=== PATIENT | male | born 1955 | race Caucasian/White ===

== ENCOUNTER → 2020-03-17 08:56 | Outpatient (CLI) | payer BC, SELFPAY ==
[2020-03-17 11:02] LABS: Anion Gap 8 (5-15); BUN 13 mg/dL (7-18); BUN/Creat Ratio 17.2 RATIO (10-20); Calcium,Total 8.9 mg/dL (8.5-10.1); Chloride 105 mmol/L (98-107); Cholesterol 203 mg/dL (200); Creatinine, Serum 0.76 mg/dL (0.70-1.30); EST Glomerular Filtration Rate 110 mL/min (>60); Est Glom Filt Rate - Afr Amer 133 mL/min (>60); Glucose 92 mg/dL (74-106); High Density Lipoprotein 97 mg/dL; Potassium 4.2 mmol/L (3.5-5.1); Sodium Level 139 mmol/L (136-145); Triglycerides 79 mg/dL; Very Low Density Lipoprotein 16 mg/dL (5-40)
== END ==
PROVIDERS: PCP Family Medicine; Referring Provider Family Medicine; Visit Provider Family Medicine
DX: I10 Essential (primary) hypertension (principal)
CPT/HCPCS: 36415; 80048; 80061

== ENCOUNTER → 2021-06-02 08:10 | Outpatient (CLI) | payer MEDICARE, SELFPAY ==
[2021-06-02 10:37] LABS: ALB/GLOB Ratio 1.2 RATIO (0.9-2.4); AST(SGOT) 22 U/L (15-37); Alanine Aminotransfer ALT/SGPT 28 U/L (16-61); Albumin, Serum 3.8 g/dL (3.2-5.0); Alkaline Phosphatase 71 U/L (45-117); Anion Gap 4 (5-15); BUN 13 mg/dL (7-18); BUN/Creat Ratio 18.3 RATIO (10-20); Calcium,Total 8.8 mg/dL (8.5-10.1); Chloride 105 mmol/L (98-107); Cholesterol 191 mg/dL (200); Creatinine, Serum 0.71 mg/dL (0.70-1.30); EST Glomerular Filtration Rate 118 mL/min (>60); Est Glom Filt Rate - Afr Amer 142 mL/min (>60); Globulin 3.1 g/dL (2.2-4.2); Glucose 87 mg/dL (74-106); High Density Lipoprotein 83 mg/dL; PSA,Total - Annual Screen 0.95 ng/mL (0.00-4.00); Potassium 4.5 mmol/L (3.5-5.1); Protein, Total 6.9 g/dL (6.4-8.2); Sodium Level 138 mmol/L (136-145); Triglycerides 103 mg/dL; Very Low Density Lipoprotein 21 mg/dL (5-40)
== END ==
PROVIDERS: PCP Family Medicine; Referring Provider Family Medicine; Visit Provider Family Medicine
DX: I10 Essential (primary) hypertension (principal); Z12.5 Encounter for screening for malignant neoplasm of prostate
CPT/HCPCS: 36415; 80053; 80061; 84153; G0103

== ENCOUNTER → 2021-06-16 16:53 | Outpatient (CLI) | payer MEDICARE, SELFPAY | PROVIDERS: PCP Family Medicine; Visit Provider Family Medicine | DX: B34.9 Viral infection, unspecified (principal) | CPT/HCPCS: 87635; U0005; U0003 ==

== ENCOUNTER → 2021-06-19 15:27 | Outpatient (CLI) | payer MEDICARE, SELFPAY ==
--- NOTE | 2021-06-19 15:30 | RAD_ITS ---
INDICATION: Cough, bronchitis EXAMINATION/TECHNIQUE: X-RAY - XR Chest 2 Views COMPARISON: None. FINDINGS: LINES/DEVICES: None. LUNGS: No consolidation, edema or effusion. No pneumothorax. MEDIASTINUM AND CARDIOVASCULAR STRUCTURES: Cardiac silhouette not enlarged. Central airways and mediastinal contour are unremarkable. BONES AND SOFT TISSUES: Mild degenerative changes visualized in the thoracic spine, no acute osseous abnormality is seen. RAD/Chest PA and Lateral IMPRESSION: No radiographic evidence of acute cardiopulmonary disease. Electronically Signed: Jonnathan Tellez MD at 16:24 EDT Tel , Service support ,
== END ==
PROVIDERS: PCP Family Medicine; Referring Provider Family Medicine; Visit Provider Family Medicine
DX: J40 Bronchitis, not specified as acute or chronic (principal)
CPT/HCPCS: 71046

== ENCOUNTER → 2021-08-31 | Outpatient (CLI) | payer MEDICARE, SELFPAY | END | disposition home or self-care (01) | PROVIDERS: PCP Family Medicine; Visit Provider Nurse Practitioner Family | DX: U07.1 COVID-19 (principal) | CPT/HCPCS: 87635; U0005; U0003 ==

== ENCOUNTER 2021-12-30 07:13 | Outpatient (CLI) | payer MEDICARE, SELFPAY ==
[2021-12-30 10:20] LABS: Absolute Lymphocyte Count 2.64 X10^3/uL (0.83-4.51); Absolute Neutrophil Count 2.8 X10^3/uL (2.0-7.7); Basophil# 0.06 X10^3/uL; Basophil% 0.9 % (0-1); Eosinophil# 0.64 X10^3/uL; Eosinophils% 9.3 % (0-5); Hematocrit 47.1 % (40-54); Hemoglobin 15.2 g/dL (13.0-16.5); Lymphocyte # 2.64 X10^3/ul (0.83-4.51); Lymphocyte % 38.3 % (19-41); Mean Corp Hgb Conc 32.3 g/dL (32-36); Mean Corpuscular Volume 96.1 fL (80-94); Mean Platelet Vol. 14.9 fl (6.2-12.0); Monocyte# 0.72 X10^3/uL; Monocyte% 10.4 % (0-10); NRBC Flagged by Analyzer 0 % (0-5); Neutrophil # 2.83 X10^3/uL (2.7-7.7); Platelet Count 203 K/mm3 (150-450); RBC Distribution Width CV 13.2 % (11.6-14.6); White Blood Count 6.9 K/mm3 (4.4-11.0)
[2021-12-30 10:47] LABS: ALB/GLOB Ratio 1.2 RATIO (0.9-2.4); AST(SGOT) 23 U/L (15-37); Alanine Aminotransfer ALT/SGPT 25 U/L (16-61); Albumin, Serum 3.6 g/dL (3.2-5.0); Alkaline Phosphatase 69 U/L (45-117); Anion Gap 5 (5-15); BUN 15 mg/dL (7-18); BUN/Creat Ratio 19.4 RATIO (10-20); Calcium,Total 8.7 mg/dL (8.5-10.1); Chloride 105 mmol/L (98-107); Cholesterol 202 mg/dL (200); Creatinine, Serum 0.78 mg/dL (0.70-1.30); EST Glomerular Filtration Rate 106 mL/min (>60); Est Glom Filt Rate - Afr Amer 129 mL/min (>60); Globulin 3.1 g/dL (2.2-4.2); Glucose 84 mg/dL (74-106); High Density Lipoprotein 79 mg/dL; Potassium 4.1 mmol/L (3.5-5.1); Protein, Total 6.7 g/dL (6.4-8.2); Sodium Level 139 mmol/L (136-145); Triglycerides 136 mg/dL; Very Low Density Lipoprotein 27 mg/dL (5-40)
== END 2021-12-30 23:59 | disposition home or self-care (01) ==
LOC: MTLAB 07:14
PROVIDERS: PCP Registered Nurse; Referring Provider Registered Nurse; Visit Provider Registered Nurse
DX: I10 Essential (primary) hypertension (principal)
CPT/HCPCS: 36415; 80053; 80061; 85025

== ENCOUNTER 2022-05-26 15:15 | Emergency (ER) | payer MEDICARE, SELFPAY ==
[2022-05-26 15:17] VITALS: BP 140/114; PULSE 97; RESP 14; TEMP 36.1; O2SAT 100; BMI 23.3
--- NOTE | 2022-05-26 15:26 | EKG12_ITS ---
Test Reason : CHEST PAIN Blood Pressure : / mmHG Vent. Rate : 052 BPM Atrial Rate : 052 BPM P-R Int : 232 ms QRS Dur : 102 ms QT Int : 426 ms P-R-T Axes : 077 047 050 degrees QTc Int : 396 ms Sinus bradycardia with 1st degree A-V block Otherwise normal ECG Confirmed by TAE MARTINEZ, RENEE ([id number]), editorial director JAKOB JOY ([id number]) on 05/28/2022 2:29:47 PM Referred By: JESSICA Confirmed By:SAIDA STRONG MD
--- NOTE | 2022-05-26 15:27 | EDS_ITS ---
HPI History of Present Illness Chief Complaint: Chest Pain Informant: patient Onset/Context/Timing Onset: - (Acute on chronic, worse today) Activity at onset: sudden Timing: Intermittent Quality: Positive for Sharp Location: Left Chest and - (Left arm) Current Severity: Gone Maximum Severity: Moderate Narrative Narrative: Patient presents secondary to intermittent left chest and arm pain. He states for the last 10 years or so he has had intermittent problems like this. 10 years ago he had a cardiac work-up that was unremarkable. He was told this would likely be secondary to nerve injury. He states that throughout the years has had intermittent episodes. Over the past week he has noted more frequent episodes and last night pain actually woke him from sleep. He states a couple of the episodes were very severe and took his breath away for a moment. Dony walked around, moving his left arm and pain seemed to subside. [facility] Medical History Enlarged heart Hypertension Home Medications Elliott-Citrate 05/26/22 [History Last Taken Unknown] aspirin 81 mg chewable tablet 81 mg PO DAILY 05/26/22 [History Last Taken Unknown] cetirizine 10 mg tablet (Zyrtec) 10 mg PO DAILY 05/26/22 [History Last Taken Unknown] glucosamine KRh-D4-Wtarlrdax greta 1,500 mg-400 unit-100 mg tablet (Osteo Bi- Flex (5-Loxin)) 2 tab PO DAILY 05/26/22 [History Last Taken Unknown] losartan 50 mg tablet 100 mg PO DAILY 05/26/22 [History Last Taken Unknown] oyirsvyrorgo-ptnjbtii-rcrnj acid 400 mcg-vitamin K 40 mcg capsule 1 cap PO DAILY 05/26/22 [History Last Taken Unknown] Allergy/AdvReac Type Severity Reaction Status Date / Time levofloxacin [From Levaquin] Allergy Anaphylaxis Verified 05/26/22 15:17 Penicillins [PCN] Allergy Hives Verified 05/26/22 15:17 tramadol AdvReac Other Verified 05/26/22 15:17 Social History Smoking Status: Former smoker ROS ROS ED Constitutional Constitutional ED: Denies chills or fever(s) Eyes Eyes: Denies change in vision or discharge from eye(s) ENT ENT ED: Denies discharge from eye(s), rhinorrhea or sore throat Cardiovascular Cardiovascular: Reports chest pain; Denies palpitations Respiratory/Chest Respiratory/Chest: Denies cough or dyspnea Gastrointestinal Gastrointestinal: Denies abdominal pain, diarrhea, nausea or vomiting Genitourinary Genitourinary ED: Denies difficulty urinating or dysuria Musculoskeletal Musculoskeletal: Reports extremity pain; Denies back pain Integumentary Denies Abrasions or rash Neurologic Neurologic: Denies headache(s) or weakness Allergic/Immunologic Allergic/Immunologic ED: Denies lip swelling or urticaria EXAM Physical Exam Const Vital Signs: 05/26/22 15:17 05/26/22 15:31 05/26/22 15:31 Temperature 97 F L Temperature Source Temporal Pulse Rate 97 54 L Respiratory Rate 14 15 Respiratory Effort Normal Blood Pressure 140/114 H 160/79 H Blood Pressure Mean 122 106 Pulse Ox 100 99 Oxygen Delivery Method Room Air Room Air 05/26/22 16:19 05/26/22 17:00 Temperature Temperature Source Pulse Rate 53 L Respiratory Rate 12 Respiratory Effort Blood Pressure 151/75 H Blood Pressure Mean Pulse Ox 99 98 Oxygen Delivery Method Room Air Positive well nourished and well developed General Appearance ED: well developed HEENT Reports normocephalic and head/scalp atraumatic Eyes PERRL and EOMs intact bilaterally Neck supple Chest Wall inspection of chest normal and palpation of chest normal Resp normal respiratory effort and clear to auscultation bilaterally Cardio regular rhythm Rate: bradycardia GI normal to inspection, nondistended, normoactive bowel sounds Palpation: soft Extremity normal to inspection Neuro oriented x3 and no sensory deficits noted Sensorium / Orientation: alert Motor Exam: strength 5/5 throughout Psych mental status grossly normal Skin no rashes or lesions noted Heart Score History: Slightly/Non-Suspicious ECG: Normal Age: >/= 65 years Risk Factors: 1 or 2 Risk Factors Troponin: </= Normal Limit Score: 3 MDM MDM MDM Narrative Medical decision making narrative: Patient had 1 baby aspirin this morning. He is given 3 baby aspirin on arrival to the emergency room. EKG, chest x-ray, lab work obtained. Patient was monitored on secured entrance monitor throughout his stay. Lab Data Attestation: I reviewed the patient's lab results. Labs: Laboratory Results - last 24 hr 05/26/22 05/26/22 15:35 15:35 WBC 7.4 RBC 4.64 Hgb 14.5 Hct 44.3 MCV 95.5 H MCH 31.3 MCHC 32.7 RDW Std Deviation 44.0 H RDW Coeff of Ousmane 12.5 Plt Count 231 MPV 12.5 H Immature Gran % (Auto) 0.300 Neut % (Auto) 43.8 L Lymph % (Auto) 34.6 [place] % (Auto) 9.5 Eos % (Auto) 11.0 H Baso % (Auto) 0.8 Absolute Neuts (auto) 3.2 Absolute Lymphs (auto) 2.55 Nucleated RBC % 0 Differential Comment SCANNED Sodium 140 Potassium 4.1 Chloride 108 H Carbon Dioxide 29.0 Anion Gap 3 L BUN 18 Creatinine 0.75 Estim Creat Clear Calc 71.68 Est GFR (MDRD) Af Amer 133 Est GFR (MDRD) Non-Af 110 BUN/Creatinine Ratio 23.9 H Glucose 90 Calcium 9.0 Troponin I High Sens 6 Radiography Chest X-Ray - ED: 1 View, Read by ED Physician, Normal, Heart, Lungs and Mediastinum Diagnostic Testing: Clinical Impression(s) from Imaging Studies Chest X-Ray 05/26/22 15:30 IMPRESSION: No acute abnormality is seen. Electronically Signed: Blair Andujar MD at 15:43 EDT , EKG Initial EKG: Attestation: I personally reviewed and interpreted this EKG as follows: Interpretation: Sinus Bradycardia (Sinus bradycardia 52 bpm. First-degree AV block with MS of 232. No acute ST change.) Treatment and Re-Evaluation Narrative: Repeat evaluation patient resting comfortably. He states he had a couple episodes of sharp shooting pain with no change noted on secured entrance monitor. Lab work reviewed with patient and at bedside. Lab work is unremarkable with a negative troponin at 6. He has had several days of pain and did not feel he needs to stay for a repeat 2-hour troponin. Chest x-ray per my interpretation reveals no acute findings. Patient does state that his arm pain last night that was most significant was when he woke up with his left arm folded across his chest. Once he straighten his arm out to his left side his pain resolved. I do believe this is likely musculoskeletal in nature. Return instructions are provided. Discharge Plan Triage Chief Complaint: Chest Pain ED Provider: Chante Palma Dx/Rx/DC Orders Clinical Impression: Atypical chest pain Instructions: ED Chest Pain, Noncardiac Prescriptions: No Action losartan 50 mg tablet 100 mg PO DAILY Label Comments: TAKE 2 TABLETS BY MOUTH DAILY cetirizine [Zyrtec] 10 mg Tablet 10 mg PO DAILY aspirin 81 mg Tablet,Chewable 81 mg PO DAILY uugmrwlcbqj-D3-Jkqedpptr serr [Osteo Bi-Flex (5-Loxin)] 1,500-400-100 mg-unit-mg Tablet 2 tab PO DAILY Rx Instructions: give after food/meal Multi For Him (no iron) 400-40 mcg Capsule 1 cap PO DAILY Elliott-Citrate Primary Care Provider: Ashley Shrestha Referrals: Mirian Dimas MOLECULAR BIOLOGY SCIENTIST, MOLECULAR BIOLOGY SCIENTIST-C [NON-STAFF] - 1-2 Weeks Disposition Disposition: Home, Self Care Discharge Date/Time: 05/26/22 17:01
--- NOTE | 2022-05-26 15:30 | RAD_ITS ---
STUDY: X-RAY CHEST REASON FOR EXAM: Male, 67 years old. Chest pain TECHNIQUE: Single AP portable view of the chest. COMPARISON: Comparison is made with prior study dated 06/19/2021. FINDINGS: EKG electrodes are seen. The lungs are clear and expanded. Scattered calcified granulomas. There is no demonstrated pleural abnormality. Normal size heart. Calcified right hilar lymph nodes. Normal visualized pulmonary arteries. Normal visualized aortic arch and descending thoracic aorta. There are degenerative changes of the visualized thoracic spine. Normal visualized ribs, clavicles, and shoulders. There is no demonstrated abnormality of the visualized soft tissue structures of the upper abdomen. RAD/Chest 1 View (Portable) IMPRESSION: No acute abnormality is seen. Electronically Signed: Blair Andujar MD at 15:43 EDT ,
[2022-05-26 15:31] VITALS: BP 160/79; PULSE 54; RESP 15; O2SAT 99
[2022-05-26 15:42] LABS: Absolute Lymphocyte Count 2.55 X10^3/uL (0.83-4.51); Absolute Neutrophil Count 3.2 X10^3/uL (2.0-7.7); Basophil# 0.06 X10^3/uL; Basophil% 0.8 % (0-1); Eosinophil# 0.81 X10^3/uL; Hematocrit 44.3 % (40-54); Hemoglobin 14.5 g/dL (13.0-16.5); Lymphocyte # 2.55 X10^3/ul (0.83-4.51); Lymphocyte % 34.6 % (19-41); Mean Corp Hgb Conc 32.7 g/dL (32-36); Mean Corpuscular Hgb 31.3 pg (27.0-32.0); Mean Corpuscular Volume 95.5 fL (80-94); Mean Platelet Vol. 12.5 fl (6.2-12.0); Monocyte% 9.5 % (0-10); NRBC Flagged by Analyzer 0 % (0-5); Neutrophil # 3.22 X10^3/uL (2.7-7.7); Neutrophil % 43.8 % (47-70); POSITIVE MORPHOLOGY YES; Platelet Count 231 K/mm3 (150-450); RBC Distribution Width CV 12.5 % (11.6-14.6); Red Blood Count 4.64 M/mm3 (4.6-6.2); White Blood Count 7.4 K/mm3 (4.4-11.0)
[2022-05-26] MEDS: Aspirin 81 MG TAB.CHEW 243 MG PO (15:43)
[2022-05-26 15:47] LABS: Differential Indicated SCAN CRITERIA MET
[2022-05-26 16:03] LABS: Anion Gap 3 (5-15); BUN 18 mg/dL (7-18); BUN/Creat Ratio 23.9 RATIO (10-20); Chloride 108 mmol/L (98-107); Creatinine, Serum 0.75 mg/dL (0.70-1.30); EST Glomerular Filtration Rate 110 mL/min (>60); Est Glom Filt Rate - Afr Amer 133 mL/min (>60); Estimated Creatinine Clearance 71.68 ml/min; Glucose 90 mg/dL (74-106); Potassium 4.1 mmol/L (3.5-5.1); Sodium Level 140 mmol/L (136-145); Troponin-I HS (w/2H Reflex) 6 pg/mL (3.0-78.0)
[2022-05-26 16:09] LABS: Differential Comment SCANNED
[2022-05-26 16:19] VITALS: O2SAT 99
[2022-05-26 17:00] VITALS: BP 151/75; PULSE 53; RESP 12; O2SAT 98
[2022-05-26 17:38] LABS: Reflex Troponin-HS? (from REC) Y
== END 2022-05-26 17:01 | disposition home or self-care (01) ==
PROVIDERS: Emergency Provider Emergency Medicine; PCP Family Medicine; Visit Provider Emergency Medicine
DX: R07.89 Other chest pain (principal); I10 Essential (primary) hypertension; Z79.82 Long term (current) use of aspirin; Z79.899 Other long term (current) drug therapy; Z87.891 Personal history of nicotine dependence
CPT/HCPCS: 71045; 80048; 84484; 85025; 93005; 99284

== ENCOUNTER → 2022-06-09 | Outpatient (CLI) | payer MEDICARE, SELFPAY ==
--- NOTE | 2022-06-09 13:12 | CT_ITS ---
STUDY: CT MAXILLOFACIAL SINUSES REASON FOR EXAM: Male, 67 years old. CHRONIC SINUSITIS RADIATION DOSAGE (If Supplied By Facility): CTDIvol = ( 33.06 ) mGy, DLP = ( 813.19 ) mGycm TECHNIQUE: The patient was scanned in a multi detector CT scanner. High resolution axial imaging was performed without the administration of intravenous contrast material. Sagittal and coronal images were reconstructed. Individualized dose optimization techniques were used for this CT. COMPARISON: None. FINDINGS: FRONTAL SINUSES: Normal aeration, without mucosal inflammatory disease. ETHMOIDAL SINUSES: Normal aeration, without mucosal inflammatory disease. MAXILLARY SINUSES: Mild degree of mucosal thickening of the left maxillary sinus. SPHENOIDAL SINUSES: Normal aeration, without mucosal inflammatory disease. There is patency of the bilateral maxillary infundibuli with normal uncinate processes, ethmoid bullae, and hiatus semilunaris. Normal bilateral middle turbinates. Normal bilateral inferior turbinates. Normal midline nasal septum. There is patency of the bilateral nasal airways. The visualized osseous structures are normal. The visualized bilateral orbital contents are normal. CT/Sinus/Facial Bone IMPRESSION: Mild degree of mucosal thickening of the left maxillary sinus. Electronically Signed: Blair Andujar MD at 14:06 EDT ,
== END | disposition home or self-care (01) ==
LOC: CT 13:10
PROVIDERS: PCP Family Medicine; Visit Provider Otolaryngology
DX: J32.9 Chronic sinusitis, unspecified (principal)
CPT/HCPCS: 70486

== ENCOUNTER → 2022-12-08 | Outpatient (CLI) | payer MEDICARE, SELFPAY ==
[2022-12-08 12:40] LABS: Absolute Lymphocyte Count 2.11 X10^3/uL (0.83-4.51); Absolute Neutrophil Count 3.1 X10^3/uL (2.0-7.7); Basophil# 0.03 X10^3/uL; Basophil% 0.5 % (0-1); Eosinophil# 0.22 X10^3/uL; Eosinophils% 3.7 % (0-5); Hematocrit 45.2 % (40-54); Hemoglobin 14.5 g/dL (13.0-16.5); Lymphocyte # 2.11 X10^3/ul (0.83-4.51); Lymphocyte % 35.4 % (19-41); Mean Corp Hgb Conc 32.1 g/dL (32-36); Mean Corpuscular Hgb 30.9 pg (27.0-32.0); Mean Corpuscular Volume 96.4 fL (80-94); Mean Platelet Vol. 13.2 fl (6.2-12.0); Monocyte# 0.54 X10^3/uL; Monocyte% 9.1 % (0-10); NRBC Flagged by Analyzer 0 % (0-5); Neutrophil # 3.05 X10^3/uL (2.7-7.7); Neutrophil % 51.1 % (47-70); Platelet Count 210 K/mm3 (150-450); RBC Distribution Width CV 13.7 % (11.6-14.6); RBC Distribution Width SD 48.9 fl (35.1-43.9); Red Blood Count 4.69 M/mm3 (4.6-6.2)
[2022-12-08 13:58] LABS: ALB/GLOB Ratio 1.2 RATIO (0.9-2.4); AST(SGOT) 16 U/L (15-37); Alanine Aminotransfer ALT/SGPT 20 U/L (16-61); Albumin, Serum 3.7 g/dL (3.2-5.0); Alkaline Phosphatase 67 U/L (45-117); Anion Gap 10 (5-15); BUN 18 mg/dL (7-18); BUN/Creat Ratio 25.3 RATIO (10-20); Calcium,Total 9.3 mg/dL (8.5-10.1); Chloride 106 mmol/L (98-107); Cholesterol 186 mg/dL (200); Creatinine, Serum 0.71 mg/dL (0.70-1.30); EST Glomerular Filtration Rate 117 mL/min (>60); Est Glom Filt Rate - Afr Amer 142 mL/min (>60); Globulin 3.1 g/dL (2.2-4.2); Glucose 76 mg/dL (74-106); High Density Lipoprotein 84 mg/dL; PSA,Total - Annual Screen 1.22 ng/mL (0.00-4.00); Potassium 4.8 mmol/L (3.5-5.1); Protein, Total 6.8 g/dL (6.4-8.2); Sodium Level 141 mmol/L (136-145); Triglycerides 121 mg/dL; Very Low Density Lipoprotein 24 mg/dL (5-40)
== END | disposition home or self-care (01) ==
LOC: MFPLAB 09:52
PROVIDERS: PCP Family Medicine; Referring Provider Family Medicine; Visit Provider Family Medicine
DX: Z13.220 Encounter for screening for lipoid disorders (principal); Z12.5 Encounter for screening for malignant neoplasm of prostate; I10 Essential (primary) hypertension; R93.7 Abnormal findings on diagnostic imaging of other parts of musculoskeletal system
CPT/HCPCS: 36415; 80053; 80061; 82306; 84153; 85025; G0103

== ENCOUNTER → 2022-12-22 | Outpatient (CLI) | payer MEDICARE, SELFPAY ==
--- NOTE | 2022-12-22 09:12 | BD_ITS ---
STUDY: DUAL ENERGY X-RAY ABSORPTIOMETRY / DXA REASON FOR EXAM: Male, 67 years old. M85.89 TECHNIQUE: Bone Mineral Density (BMD) measurements of lumbar spine and bilateral hips were obtained. COMPARISON: None. FINDINGS: Lumbar Spine (L1-L4): g/cm2 (1.088) / T-score (0.0) / Z-score (0.8) Findings are suggestive of normal bone density with a low fracture risk. Left Femur Total: g/cm2 (0.940) / T-score (-0.6) / Z-score (0.0) Left Femoral Neck: g/cm2 (0.748) / T-score (-1.3) / Z-score (-0.2) Right Femur Total: g/cm2 (0.948) / T-score (-0.6) / Z-score (0.0) Right Femoral Neck: g/cm2 (0.736) / T-score (-1.4) / Z-score (-0.3) BD/Dexa Bone Density Study IMPRESSION: The patient is considered osteopenic as outlined below according to World Augustine Organization (WHO) criteria with a low fracture risk. Reference Information: The T-score is the number of standard deviations above or below the standard which is normal for young adults at their peak bone mineral density. The World Health Organization (WHO) interprets the T-scores as follows: Above -1 Normal bone density Between -1 and -2.5 Osteopenia Equal to / or below -2.5 Osteoporosis As a practical clinical guideline, osteopenia may be graded as follows: Mild -1 through -1.5 Moderate -1.6 through -2.0 Severe -2.1 through -2.4 The Z-score is the number of standard deviations above or below age-matched controls. A Z-score of less than -1.5 would be considered abnormal. References: 1. NIH Osteoporosis and Related Bone Diseases www osteo.org 2. International Society for Clinical Densitometry www iscd.org 3. National Osteoporosis Foundation www nof.org Electronically Signed: Blair Andujar MD at 8:09 EST ,
== END | disposition home or self-care (01) ==
LOC: OPBD 09:05
PROVIDERS: PCP Family Medicine; Referring Provider Family Medicine; Visit Provider Family Medicine
DX: M85.89 Other specified disorders of bone density and structure, multiple sites (principal); R93.7 Abnormal findings on diagnostic imaging of other parts of musculoskeletal system
CPT/HCPCS: 77080

== ENCOUNTER 2022-12-28 08:00 | Outpatient (RCR) | payer MEDICARE, SELFPAY ==
--- NOTE | 2022-12-28 11:23 | HP.PTEVAL_ITS ---
Patient's Visit Information HELEN ELLER is a 67 year old M referred to Physical Therapy by Ashley Shrestha DO with a diagnosis of LEFT SHOULDER PAIN. Date of Evaluation: 12/15/22 Physical Therapist: Reymundo Bailey PT, Cert MDT, OCS - Visit Plan Frequency: 1-2x /Week Duration: 4 Weeks Plan: PT INTERVETION POSTURAL EX'S , AND RTC SCAPULAR STRENGTHENING - Subjective This 67 y/o male presents to physical therapy with left shoulder pain. Patient has had left shoulder pain ~ 4 years ago which progressively worsening. Patient symptoms worse by getting out of chair made symptoms. Seen DR Falcon recommended cortisone injection which patient did not do but thought tendonitis. Seen DR recommended PT. Seems to getting better. X-rays showed OA. Patient anterior /posterior occasional biceps. Aggravating factors lifting , OH reaching behind back. Alleviating factors rest. Denies paresthesia/tingling-. Sleeping okay. Patient goals no pain. If doesn't get better may need injection or MRI. SOCAIL: . VOCATION: retired - Pain Left Shoulder Pain Intensity (Out of 10): 0 Pain Intensity Range: 10 - Objective POSTURE: mild forward posture. NEURO: denies paresthesia/tingling. PALAPTION: unremarkable. AROM: flexion 160 degrees ,abduction 160 degrees , ER 90 degrees. MMT: RTC 4/5 , deltoid 4/5 - Special Tests R Shoulder Drop Sign - IS Test: Negative R Shoulder Empty Can - SS: Negative R Shoulder Belly Press - SupScap: Negative R Shoulder Perez Karlos - Impingement: Negative R Shoulder Speeds Test - Labrum/Biceps: Negative R Shoulder Shrug Sign - OA/Adhesive Capsulitis: Negative - Balance/Special Test Scores Quick DASH Score: 20.4525 - Goals Goal 1:: Patient to be I with HEP Goal Time Frame: 4-6 Weeks Goal 2:: Patient to demonstrate 75% improvement with increase function with ADLS Goal Time Frame: 4-6 Weeks Goal 3:: Patient to improve strength RTC to 5/5 to improve function Goal Time Frame: 4-6 Weeks Goal 4:: Patient to improve quick task by 5 points to improve QOL Goal Time Frame: 4-6 Weeks Goal 5:: Patient to improve all ADLS and housework tasks without limitations Goal Time Frame: 4-6 Weeks - Rehabilitation Potential Physical Therapy Diagnosis: Patient appears to have impingement which is improving has impairments with OH and ADLS thus benefit from skilled PT Rehabilitation Potential: Good - Anticipated Interventions Patient/Client Instruction: Educate patient on: Condition, Plan of Care For the Purpose of:: To decrease pain, To increase ROM, To improve muscle performance and motor function, To improve ability to perform ADL's, To increase tolerance to activity/condition/position, To improve ability of physical actions for home/community/work/leisure, To improve health of tissue, To decrease soft tissue restriction, To increase flexibility/ROM Therapeutic Exercise to Include: Strength training, Endurance training, Balance training, Postural training, Flexibilty training, Active ROM For the Purpose of:: To decrease pain, To increase ROM, To improve nutrient delivery to tissue, To improve muscle performance and motor function, To improve ability of physical actions for home/community/work/leisure, To improve health of tissue, To decrease soft tissue restriction, To prevent re-injury TENS: Yes IF ES: Yes Cryotherapy (ice pack, ice massage): Yes Thermo therapy (hot pack): Yes Ultrasound (thermal/non thermal): Yes For the Purpose of:: To improve nutrient delivery to tissue, To improve health of tissue, To decrease soft tissue restriction Thank you for the opportunity to evaluate your patient. For Medicare and Medicare HMO plans, please review the plan of care and approve it. It will need to be FAXED BACK to us at [phone] for Medicare purposes. For Medicare only, by signing this I certify the plan of care. Please let me know if there are questions or concerns regarding this plan of care. Physician Signature: Date:
--- NOTE | 2022-12-28 11:23 | HP.PTEVAL2 ---
Patient's Visit Information HELEN ELLER is a 67 year old M referred to Physical Therapy by Ashley Shrestha DO with a diagnosis of . Date of Evaluation: Physical Therapist: Reymundo Bailey PT, Cert MDT, OCS - Anticipated Interventions Thank you for the opportunity to evaluate your patient. For Medicare and Medicare HMO plans, please review the plan of care and approve it. It will need to be FAXED BACK to us at [phone] for Medicare purposes. For Medicare only, by signing this I certify the plan of care. Please let me know if there are questions or concerns regarding this plan of care. Physician Signature: Date:
--- NOTE | 2022-12-28 11:26 | HP.PTDCSUM_ITS ---
It has been my pleasure to treat HELEN ELLER referred by Ashley Shrestha DO, with the diagnosis of LEFT SHOULDER PAIN for a total of 3 visit(s). Discharge Date: 12/28/22 Please see the following information for a summary of their discharge status. Subjective: Doing well Left Shoulder Pain Intensity (Out of 10): 0 % Improvement: 80 Objective/Function: POSTURE:WFL. AROM: shoulder flexion/abduction 160 degrees, ER. MMT: 4/5 RTC EXCPET INFRASPINATUS 4-/5 Goal 1:: Patient to be I with HEP Goal Progress: Goal Met Goal 2:: Patient to demonstrate 75% improvement with increase function with ADLS Goal Progress: Goal Met Goal 3:: Patient to improve strength RTC to 5/5 to improve function Goal Progress: Goal Met Goal 4:: Patient to improve quick task by 5 points to improve QOL Goal Progress: Goal Met Goal 5:: Patient to improve all ADLS and housework tasks without limitations Goal Progress: Goal Met Plan: D/C TO HEP Discharge Comments: [facility] If there are questions or concerns regarding this patient's physical therapy, please feel free to call me at [phone]. Thank you for the referral of this patient. Sincerely, Reymundo Bailey, PT, Cert MDT, OCS Balance/Gait/Functional tests - Balance/Special Test Scores Quick DASH Score: 0
== END 2022-12-28 19:00 | disposition home or self-care (01) ==
LOC: PT 08:00
PROVIDERS: PCP Family Medicine; Referring Provider Family Medicine; Visit Provider Family Medicine
DX: M25.512 Pain in left shoulder (principal)
CPT/HCPCS: 97110; 97162

== ENCOUNTER 2023-01-07 18:27 | Emergency (ER) | payer MEDICARE, SELFPAY ==
[2023-01-07 18:28] VITALS: BP 160/148; PULSE 54; RESP 18; TEMP 36; O2SAT 97; BMI 23.0
[2023-01-07 20:06] VITALS: BP 143/73; PULSE 56; RESP 16; O2SAT 96
--- NOTE | 2023-01-07 20:33 | EX.ED.UPPERE ---
HPI History of Present Illness Chief Complaint: Wound Informant: patient Narrative Narrative: Patient is a 67-year-old rgwnq-bwgi-uqyedgbn male presenting with injury to his left palm. Patient states he was using a stainless steel kitchen knife to take the pit out of an avocado. The pit broke in half and he subsequently stabbed his hands. They immediately cleaned it off and applied pressure. Patient feels like the bone in his hand is what stopped the knife. Came in for further wound evaluation. Not sure his last tetanus was. Denies any associated numbness or tingling. Is not on any blood thinners. No other complaint at this time Tetanus Immunization: Unknown [facility] Medical History Enlarged heart Former smoker Hypertension Internal impingement of left shoulder Left shoulder pain Home Medications Elliott-Citrate 05/26/22 [History Last Taken Unknown] aspirin 81 mg chewable tablet 81 mg PO DAILY 05/26/22 [History Last Taken Unknown] cetirizine 10 mg tablet (Zyrtec) 10 mg PO DAILY 05/26/22 [History Last Taken Unknown] glucosamine BUw-T6-Sjvychnvq greta 1,500 mg-400 unit-100 mg tablet (Osteo Bi-Flex (5-Loxin)) 2 tab PO DAILY 05/26/22 [History Last Taken Unknown] losartan 50 mg tablet 100 mg PO DAILY 05/26/22 [History Last Taken Unknown] shnblwrlfyib-lllxpddq-fyolx acid 400 mcg-vitamin K 40 mcg capsule 1 cap PO DAILY 05/26/22 [History Last Taken Unknown] Allergy/AdvReac Type Severity Reaction Status Date / Time levofloxacin [From Levaquin] Allergy Anaphylaxis Verified 01/07/23 18:28 Penicillins [PCN] Allergy Hives Verified 01/07/23 18:28 tramadol AdvReac Other Verified 01/07/23 18:28 Family History Other Hypertension Surgical History S/P FESS (functional endoscopic sinus surgery) Social History Smoking Status: Former smoker alcohol intake: current what type of physical activity do you participate in: walking, running and weight training ROS ROS ED Constitutional Constitutional ED: Denies chills or fever(s) Gastrointestinal Gastrointestinal: Denies nausea or vomiting Musculoskeletal Musculoskeletal: Reports other Details: Left hand pain Integumentary Reports other Details: Laceration to left palm Neurologic Neurologic: Denies paresthesias or weakness Hematologic/Lymphatic Hematologic/Lymphatic: Denies easy bleeding or easy bruising EXAM Physical Exam Const Vital Signs: 01/07/23 18:28 01/07/23 20:06 Temperature 96.8 F L Temperature Source Temporal Pulse Rate 54 L 56 L Respiratory Rate 18 16 Blood Pressure 160/148 H 143/73 H Blood Pressure Mean 152 96 Pulse Ox 97 96 Oxygen Delivery Method Room Air Room Air Positive well nourished and well developed General Appearance ED: well developed and NAD HEENT Reports moist mucous membranes Eyes PERRL and EOMs intact bilaterally Neck full ROM Resp normal respiratory effort Cardio regular rate and regular rhythm Cardio Narrative: 2+ radial pulses Extremity normal to inspection and full ROM Extremity Narrative: Movements of the hands. No deformity of the fingers. No obvious tendinous injury. General Extremety ED: Negative for edema General Extremity: Negative for edema Neuro oriented x3, moves all extremities and no focal motor deficits Sensorium / Orientation: alert Motor Exam: strength 5/5 throughout and muscle tone normal throughout Psych mental status grossly normal Skin Skin Narrative: 1 cm full-thickness laceration to the center of the left palm. No active bleeding at this time. Wound is well approximated with a separate with pressure. MDM MDM MDM Narrative Medical decision making narrative: Patient is evaluated for laceration to the palm of his hand. Laceration is small it does separate with pressure and is in a high utilizer area so I do not think would be amenable to gluing. X-ray is obtained to rule out associated fracture. X-ray attempted by myself as well as radiology does not show any acute fracture. There is a soft tissue injury. It was made by kitchen knife and I do not think he requires antibiotics however the wound is cleansed. Tetanus is updated. Laceration repair performed. See procedure note. Patient given return precautions. He verbalizes agreement nursing with this plan. Discharged home in stable condition. Differential diagnosis includes open fracture, laceration and tendon injury. Given the patient has no physical exam findings of a tendon injury and no radiologic findings of fracture I find these less likely. Procedures Lacerations Left hand: Length: 0.39 in Depth: Skin Shape: Linear Prep: Sterile Conditions and Shure-Clens Laceration repair: Lidocaine with epi Irrigated (ml): 200 Number of Sutures/Courtney: 1 Suture Information: Ethilon (1), Simple and 4-0 Comment: Tolerated well. No immediate complications. Discharge Plan Triage Chief Complaint: Wound ED Provider: Liz Morrow Dx/Rx/DC Orders Clinical Impression: Laceration of hand Instructions: ED Laceration Hand with ... Prescriptions: No Action losartan 50 mg tablet 100 mg PO DAILY Label Comments: TAKE 2 TABLETS BY MOUTH DAILY cetirizine [Zyrtec] 10 mg Tablet 10 mg PO DAILY aspirin 81 mg Tablet,Chewable 81 mg PO DAILY nokxgqmwcxz-H3-Wtdijuhyz serr [Osteo Bi-Flex (5-Loxin)] 1,500-400-100 mg-unit-mg Tablet 2 tab PO DAILY Rx Instructions: give after food/meal Multi For Him (no iron) 400-40 mcg Capsule 1 cap PO DAILY Elliott-Citrate Primary Care Provider: Ashley Shrestha Referrals: Ashley Shrestha, DO [Primary Care Provider] - Activity Restrictions/Additional Instructions: Sutures to be removed in 10 days. Alternate ibuprofen and Tylenol as needed for pain. Clean with gentle soap and water as needed. You can apply bacitracin ointment to it which is available elxx-tve-mceypvl. Do not submerge in water for the first 48 hours. Disposition Disposition: Home, Self Care Discharge Date/Time: 01/07/23 21:44
[2023-01-07] MEDS: Diphth,Pertuss(Acell),Tet Vac 0.5 ML Vial IM (20:44)
--- NOTE | 2023-01-07 20:47 | RAD_ITS ---
STUDY: X-RAY - LEFT HAND REASON FOR EXAM: Male, 67 years old. Puncture wound to the left palm after cutting and epicondyle. TECHNIQUE: 3 view(s) of the hand. COMPARISON: None. FINDINGS: Normal radiocarpal articulation. Normal distal radioulnar joint. Normal visualized carpal bones. Normal carpal articulations Normal carpometacarpal articulation of the thumb. Normal second through fifth carpometacarpal joints. Normal metacarpi. Normal metacarpophalangeal joint of the thumb. Normal interphalangeal joint of the thumb. Normal proximal and distal phalanges of the thumb. Normal metacarpophalangeal joints of the second through fifth fingers. Normal proximal and distal interphalangeal joints of the second through fifth fingers. Normal phalanges of the second through fifth fingers. Air is seen in the palmar soft tissues suggesting soft tissue wound. There is no foreign body. RAD/Hand Min 3 Views IMPRESSION: A soft tissue injury to the palm without foreign body. There is no fracture or dislocation. Electronically Signed: Luiz Freire DO at 21:05 EDT ,
[2023-01-07] MEDS: Lidocaine 1%/Epi 1:200 (30ml) 30 ML AMPUL OPERA.SITE (21:02)
== END 2023-01-07 21:44 | disposition home or self-care (01) ==
PROVIDERS: Emergency Provider Emergency Medicine; PCP Family Medicine; Visit Provider Emergency Medicine
DX: S61.412A Laceration without foreign body of left hand, initial encounter (principal); Z87.891 Personal history of nicotine dependence; W26.0XXA Contact with knife, initial encounter
CPT/HCPCS: 12001; 73130; 90715; 99283

== ENCOUNTER 2024-03-23 17:38 | Emergency (ER) | payer MEDICARE, SELFPAY ==
[2024-03-23 17:39] VITALS: BP 157/72; PULSE 56; RESP 14; TEMP 36.8; O2SAT 98; BMI 22.7
--- NOTE | 2024-03-23 17:46 | EDS_ITS ---
HPI History of Present Illness Chief Complaint: Allergic Reaction Informant: patient and spouse/S.O. Narrative Narrative: Presents concerns reaction to bee stings. Occurred an hour prior to arrival. This was at home. They think it is hornets. Stung multiple times. States took a shower started noting some voice changes she took 2 Benadryl's progress. He has had allergies to bee stings in the past however no epinephrine last time was 20 years ago. Denies any trouble swallowing or breathing. No cardiac history. History of hypertension controlled with medications. Prior similar symptoms: Yes [facility] Medical History Internal impingement of left shoulder Left shoulder pain Former smoker Enlarged heart Hypertension Home Medications ?Medication ?Instructions ?Recorded ?Last Taken ?Type aspirin 81 mg chewable tablet 81 mg PO DAILY 05/26/22 Unknown History cetirizine 10 mg tablet (Zyrtec) 10 mg PO DAILY 05/26/22 Unknown History glucosamine [id number] 2 tab PO DAILY 05/26/22 Unknown History greta 1,500 mg-400 unit-100 mg tablet (Osteo Bi-Flex (5-Loxin)) losartan 50 mg tablet 100 mg PO DAILY 05/26/22 Unknown History szrohnhkxirq-yoyxkezy-owfhg acid 1 cap PO DAILY 05/26/22 Unknown History 400 mcg-vitamin K 40 mcg capsule epinephrine 0.3 mg/0.3 mL 0.3 mg (0.3 mL) IM Q10M PRN PRN 03/23/24 Unknown Rx injection, auto-injector (EpiPen anaphylaxis #2 ea 2-Douglas) famotidine 20 mg tablet 20 mg PO BID #10 TABLETS 03/23/24 Unknown Rx prednisone 20 mg tablet 60 mg (3 x 20 mg) PO DAILY #12 03/23/24 Unknown Rx TABLETS Allergy/AdvReac Type Severity Reaction Status Date / Time levofloxacin (From Levaquin) Allergy Anaphylaxis Verified 03/23/24 17:39 Penicillins (PCN) Allergy Hives Verified 03/23/24 17:39 tramadol AdvReac Other Verified 03/23/24 17:39 Family History Other Hypertension Surgical History S/P FESS (functional endoscopic sinus surgery) Social History (Updated 03/23/24 @ 17:52 by Avani Beckman) household members: spouse housing: house Smoking Status: Former smoker alcohol intake: current what type of physical activity do you participate in: walking, running and weight training ROS ROS ED Constitutional Constitutional ED: Denies chills, fever(s) or sweats Eyes Eyes: Denies change in vision ENT ENT ED: Reports other Details: Voice change ; Denies dysphagia or sore throat Cardiovascular Cardiovascular: Denies chest pain, leg edema, palpitations or racing heartbeat Respiratory/Chest Respiratory/Chest: Denies cough, dyspnea or dyspnea on exertion Gastrointestinal Gastrointestinal: Denies abdominal pain, diarrhea, nausea or vomiting Genitourinary Genitourinary ED: Denies dysuria, hematuria or urinary frequency Musculoskeletal Musculoskeletal: Denies back pain, extremity pain or neck pain Integumentary Reports other Details: Bee stings ; Denies rash or wounds Neurologic Neurologic: Denies headache(s), paresthesias or weakness EXAM Physical Exam Const Vital Signs: 03/23/24 17:39 03/23/24 18:39 03/23/24 19:10 Temperature 98.2 F Temperature Source Temporal Pulse Rate 56 L 58 L 50 L Respiratory Rate 14 18 16 Blood Pressure 157/72 H 128/64 H 127/56 H Blood Pressure Mean 100 85 79 Pulse Ox 98 99 98 Oxygen Delivery Method Room Air Room Air Room Air 03/23/24 20:22 Temperature 98 F Temperature Source Pulse Rate 62 Respiratory Rate 22 H Blood Pressure 137/73 H Blood Pressure Mean 94 Pulse Ox 98 Oxygen Delivery Method Positive well nourished and well developed General Appearance ED: well developed and NAD HEENT Reports moist mucous membranes HEENT Narrative: No objective lip or tongue swelling no stridor. normocephalic and atraumatic Eyes EOMs intact bilaterally and conjunctivae normal General Eye ED: Yes normal appearance of both eyes Neck no lymphadenopathy and supple General: Negative for tenderness Chest Wall Chest: Negative for tenderness Resp normal respiratory effort and normal air movement Effort and Inspection: symmetric chest movement; Negative for respiratory distress Cardio regular rate, regular rhythm and no murmurs Peripheral Pulses: pulses 2+ throughout GI normal to inspection, nondistended, normoactive bowel sounds and non-tender Palpation: Negative for guarding or rebound tenderness present Back/Spine no CVA tenderness and no thoracic nor lumbar tenderness Extremity normal to inspection General Extremety ED: Negative for edema or tenderness General Extremity: Negative for edema Neuro oriented x3 and no sensory deficits noted Sensorium / Orientation: awake and alert Skin Skin Narrative: Localize sting injuries noted 1 right upper posterior arm, 2 on the right torso, 2 in the left upper arm. There is no stingers present. Slight surrounding erythema to these areas. No drainage. No urticarial lesions. MDM MDM MDM Narrative Medical decision making narrative: Interventions / MDM: Differential diagnosis: Anaphylaxis to bee sting Diagnosis considered but do not suspect: N/A My EKG interpretation: N/A Imaging independently reviewed and interpreted by myself: N/A External documents reviewed: N/A Test considered but not ordered:N/A ED course: Patient with increasing voice changes after staying. Meeting criteri a for anaphylaxis. Status post Benadryl at home x 2 tabs. Will give epinephrine, IV established for additional Pepcid and Solu-Medrol. Will monitor. Multiple reevaluations improving symptoms. Prescription for epinephrine pen. Will continue prednisone and Pepcid for 5 days. He has Benadryl at home to use as needed. Return precautions. All questions were answered. Re-evaluation: stable Disposition discussed with patient/family/significant other: Patient and significant other Case discussed with consulting clinician: N/A This note was generated with linkedFA dictation software. It may contain incorrect words, spelling, and punctuation that were not noted in checking the note before signing. Critical Care Time Critical Care Time: Yes Critical care time (excluding procedures): Discussing w/Patient &/or Family/Barrel Scraper, Performing Direct Patient Care at Bedside and - (20 minutes) Discharge Plan Triage Chief Complaint: Allergic Reaction ED Provider: Carlos Simon Dx/Rx/DC Orders Clinical Impression: Anaphylactic reaction to bee sting, Hoarseness of voice Instructions: ED BEE STING General Allergic Rxn, ED Anaphylaxis Prescriptions: New epinephrine [EpiPen 2-Douglas] 0.3 mg/0.3 mL auto-injector 0.3 mg IM Q10M PRN PRN (Reason: anaphylaxis) Qty: 2 0RF prednisone 20 mg tablet 60 mg PO DAILY Qty: 12 0RF Rx Instructions: Next dose 03/24/2024 famotidine 20 mg tablet 20 mg PO BID Qty: 10 0RF No Action losartan 50 mg tablet 100 mg PO DAILY Patient Comments: TAKE 2 TABLETS BY MOUTH DAILY cetirizine [Zyrtec] 10 mg Tablet 10 mg PO DAILY aspirin 81 mg Tablet,Chewable 81 mg PO DAILY [id number] serr [Osteo Bi-Flex (5-Loxin)] 1,500-400-100 mg-unit-mg Tablet 2 tab PO DAILY Rx Instructions: give after food/meal Multi For Him (no iron) 400-40 mcg Capsule 1 cap PO DAILY Primary Care Provider: Care Physician,No Primary Referrals: Care Physician,No Primary [Primary Care Provider] - Activity Restrictions/Additional Instructions: Status post epinephrine. Prednisone daily next dose tomorrow. Pepcid twice a day. Benadryl as needed. Follow-up with your doctor at [facility]. Return if worsening symptoms. Print Language: Citizen Of [place] Disposition Disposition: Home, Self Care Discharge Date/Time: 03/23/24 20:27
[2024-03-23] MEDS: Epi Pen (EQUIV) 0.3 MG Syringe IM (17:47)
[2024-03-23] MEDS: MethylPREDNISolone 125 MG/2 ML Vial IV (17:50)
[2024-03-23] MEDS: Famotidine 200 MG/20 ML MDV 20 MG in 0.9% Normal Saline (Pres. free 8 ML 300 MG IV (17:55)
[2024-03-23 18:39] VITALS: BP 128/64; PULSE 58; RESP 18; O2SAT 99
[2024-03-23 19:10] VITALS: BP 127/56; PULSE 50; RESP 16; O2SAT 98
[2024-03-23 20:22] VITALS: BP 137/73; PULSE 62; RESP 22; TEMP 36.6; O2SAT 98
== END 2024-03-23 20:27 | disposition home or self-care (01) ==
PROVIDERS: Emergency Provider Emergency Medicine; Visit Provider Emergency Medicine
DX: T63.441A Toxic effect of venom of bees, accidental (unintentional), initial encounter (principal); R49.0 Dysphonia; Z87.891 Personal history of nicotine dependence; I10 Essential (primary) hypertension; Z79.82 Long term (current) use of aspirin; Z79.899 Other long term (current) drug therapy
CPT/HCPCS: 96372; 96374; 96375; 99284; A4216; J3490

== ENCOUNTER 2024-06-15 15:43 | Emergency (ER) | payer MEDICARE, SELFPAY ==
[2024-06-15 15:44] VITALS: BP 141/93; PULSE 54; RESP 17; TEMP 36.1; O2SAT 96; BMI 23.0
--- NOTE | 2024-06-15 16:09 | EDS_ITS ---
HPI History of Present Illness Chief Complaint: Laceration Detail of Chief Complaint: Laceration left forearm Informant: patient Narrative Narrative: Patient presents to the emergency department complaint of laceration to left forearm that occurred this morning. Patient states that he misjudged a step and fell [place] loading [place] and lacerated his forearm on a bumper. Patient up-to-date on tetanus. He is right-hand dominant. Patient states that his is an RN and she looked at the wound and was not sure if he would need stitches advised him to come to the ER to get evaluated. Patient denies any other injuries. [facility] Medical History Internal impingement of left shoulder Left shoulder pain Former smoker Enlarged heart Hypertension Home Medications ?Medication ?Instructions ?Recorded ?Last Taken ?Type aspirin 81 mg chewable tablet 81 mg PO DAILY 05/26/22 Unknown History cetirizine 10 mg tablet (Zyrtec) 10 mg PO DAILY 05/26/22 Unknown History glucosamine [id number] 2 tab PO DAILY 05/26/22 Unknown History greta 1,500 mg-400 unit-100 mg tablet (Osteo Bi-Flex (5-Loxin)) losartan 50 mg tablet 100 mg PO DAILY 05/26/22 Unknown History bvrfhlnairgg-pnfohhts-shxdq acid 1 cap PO DAILY 05/26/22 Unknown History 400 mcg-vitamin K 40 mcg capsule epinephrine 0.3 mg/0.3 mL 0.3 mg (0.3 mL) IM Q10M PRN PRN 03/23/24 Unknown Rx injection, auto-injector (EpiPen anaphylaxis #2 ea 2-Douglas) famotidine 20 mg tablet 20 mg PO BID #10 TABLETS 03/23/24 Unknown Rx prednisone 20 mg tablet 60 mg (3 x 20 mg) PO DAILY #12 03/23/24 Unknown Rx TABLETS Allergy/AdvReac Type Severity Reaction Status Date / Time levofloxacin (From Levaquin) Allergy Anaphylaxis Verified 06/15/24 15:44 Penicillins (PCN) Allergy Hives Verified 06/15/24 15:44 tramadol AdvReac Other Verified 06/15/24 15:44 Family History Other Hypertension Surgical History S/P FESS (functional endoscopic sinus surgery) Social History (Updated 03/23/24 @ 17:52 by Avani Beckman) household members: spouse housing: house Smoking Status: Former smoker alcohol intake: current what type of physical activity do you participate in: walking, running and weight training ROS ROS ED Review of Systems ROS Unobtainable: other Constitutional Constitutional ED: Reports lethargy; Denies chills, fever(s), sweats or weight loss Eyes Eyes: Denies blurry vision, change in vision or diplopia ENT ENT ED: Denies rhinorrhea or sore throat Cardiovascular Cardiovascular: Denies chest pain, orthopnea or racing heartbeat Respiratory/Chest Respiratory/Chest: Denies cough, dyspnea, dyspnea on exertion, orthopnea or sputum Gastrointestinal Gastrointestinal: Denies abdominal pain, diarrhea, nausea or vomiting Genitourinary Genitourinary ED: Denies dysuria, hematuria or urinary frequency Musculoskeletal Musculoskeletal: Denies arthralgias, back pain, myalgias or neck pain Integumentary Reports other Details: Left forearm laceration ; Denies abscess, Abrasions or rash Neurologic Neurologic: Denies headache(s) or weakness Psychiatric Psychiatric: Denies anxiety, depression or suicidal thoughts Endocrine Endocrinology: Denies polydipsia, polyphagia or polyuria Hematologic/Lymphatic Hematologic/Lymphatic: Denies easy bleeding, easy bruising or lymphadenopathy Allergic/Immunologic Allergic/Immunologic ED: Denies mouth swelling, tongue swelling or urticaria EXAM Physical Exam Const Vital Signs: 06/15/24 15:44 Temperature 97 F L Temperature Source Temporal Pulse Rate 54 L Respiratory Rate 17 Blood Pressure 141/93 H Blood Pressure Mean 109 Pulse Ox 96 Oxygen Delivery Method Room Air Positive well nourished and well developed General Appearance ED: well developed and NAD HEENT Reports TM's clear and moist mucous membranes normocephalic and atraumatic; Negative for trauma or tenderness Tympanic Membrane ED: Yes TM's clear Eyes PERRL and EOMs intact bilaterally General Eye ED: Negative for pale conjunctiva or scleral icterus Neck no lymphadenopathy, supple and no JVD General: Negative for tenderness Chest Wall inspection of chest normal and palpation of chest normal Chest: Negative for tenderness Resp normal respiratory effort and clear to auscultation bilaterally Effort and Inspection: Negative for respiratory distress or pain with movement Auscultation: Negative for rhonchi, wheezes or diminished lung sounds Cardio regular rate, regular rhythm, S1 normal heart sound, S2 normal heart sound and no murmurs Peripheral Pulses: pulses 2+ throughout GI normal to inspection, nondistended, normoactive bowel sounds, soft to palpation, non-tender, non-distended and no masses Back/Spine no CVA tenderness and no thoracic nor lumbar tenderness Extremity normal to inspection Extremity Narrative: Left forearm-patient has a V-shaped laceration measuring 4 cm in total length that is very superficial. No bony tenderness on exam. Laceration to the dorsum of the forearm. General Extremety ED: Negative for edema General Extremity: Negative for edema Neuro oriented x3, CN's II-XII intact bilaterally, no sensory deficits noted and gait normal Sensorium / Orientation: awake, alert, oriented to person, oriented to place and oriented to time Motor Exam: strength 5/5 throughout and strength abnormal Psych mental status grossly normal Skin no rashes or lesions noted and no wounds MDM MDM MDM Narrative Medical decision making narrative: Patient presents with a superficial laceration to the dorsum of the left forearm. Almost skin tear like. No bony tenderness on exam. I do not feel any imaging is indicated. He is up-to-date on tetanus. Will clean the wound and apply clean dressing. I do not feel suture repair is indicated. Advised to follow-up for wound check and 5 to 7 days with primary care physician. To return if increasing pain, redness, swelling, purulent drainage, or condition worsen anyway. Discharge Plan Triage Chief Complaint: Laceration ED Provider: Jame Ragsdale Dx/Rx/DC Orders Clinical Impression: Forearm laceration Instructions: ED Laceration Superficial No Stitch Prescriptions: No Action losartan 50 mg tablet 100 mg PO DAILY Patient Comments: TAKE 2 TABLETS BY MOUTH DAILY cetirizine [Zyrtec] 10 mg Tablet 10 mg PO DAILY aspirin 81 mg Tablet,Chewable 81 mg PO DAILY [id number] serr [Osteo Bi-Flex (5-Loxin)] 1,500-400-100 mg-unit-mg Tablet 2 tab PO DAILY Rx Instructions: give after food/meal Multi For Him (no iron) 400-40 mcg Capsule 1 cap PO DAILY epinephrine [EpiPen 2-Douglas] 0.3 mg/0.3 mL auto-injector 0.3 mg IM Q10M PRN PRN (Reason: anaphylaxis) Qty: 2 0RF prednisone 20 mg tablet 60 mg PO DAILY Qty: 12 0RF Rx Instructions: Next dose 03/24/2024 famotidine 20 mg tablet 20 mg PO BID Qty: 10 0RF Primary Care Provider: Ewelina Bedoya Referrals: Ewelina Bedoya MD [Primary Care Provider] - 5-7 Days Print Language: Azerbaijani Disposition Disposition: Home, Self Care
[2024-06-15 16:11] VITALS: BP 140/97; PULSE 81; RESP 18; TEMP 36.8; O2SAT 97
== END 2024-06-15 16:36 | disposition home or self-care (01) ==
LOC: ED 16:31
PROVIDERS: Emergency Provider Emergency Medicine; PCP Family Medicine; Visit Provider Emergency Medicine
DX: S51.812A Laceration without foreign body of left forearm, initial encounter (principal); W10.8XXA Fall (on) (from) other stairs and steps, initial encounter; I10 Essential (primary) hypertension; Z79.82 Long term (current) use of aspirin; Z79.899 Other long term (current) drug therapy; Z87.891 Personal history of nicotine dependence
CPT/HCPCS: 99282

== ENCOUNTER 2024-07-26 11:46 | Outpatient (CLI) | payer MEDICARE, SELFPAY ==
[2024-07-26 15:07] LABS: Absolute Lymphocyte Count 2.47 X10^3/uL (0.83-4.51); Absolute Neutrophil Count 3.9 X10^3/uL (2.0-7.7); Basophil# 0.05 X10^3/uL; Basophil% 0.7 % (0-1); Eosinophil# 0.48 X10^3/uL; Eosinophils% 6.3 % (0-5); Hematocrit 44.8 % (40-54); Hemoglobin 14.4 g/dL (13.0-16.5); Lymphocyte # 2.47 X10^3/ul (0.83-4.51); Lymphocyte % 32.4 % (19-41); Mean Corp Hgb Conc 32.1 g/dL (32-36); Mean Corpuscular Hgb 30.4 pg (27.0-32.0); Mean Corpuscular Volume 94.7 fL (80-94); Mean Platelet Vol. 12.9 fl (6.2-12.0); Monocyte% 9.2 % (0-10); NRBC Flagged by Analyzer 0 % (0-5); Neutrophil # 3.91 X10^3/uL (2.7-7.7); Neutrophil % 51.1 % (47-70); Platelet Count 251 K/mm3 (150-450); RBC Distribution Width CV 13.1 % (11.6-14.6); RBC Distribution Width SD 45.1 fl (35.1-43.9); Red Blood Count 4.73 M/mm3 (4.6-6.2); White Blood Count 7.6 K/mm3 (4.4-11.0)
[2024-07-26 15:31] LABS: ALB/GLOB Ratio 1.4 RATIO (0.9-2.4); AST(SGOT) 21 U/L (15-37); Alanine Aminotransfer ALT/SGPT 23 U/L (16-61); Alkaline Phosphatase 60 U/L (45-117); Anion Gap 6 (5-15); BUN 18 mg/dL (7-18); BUN/Creat Ratio 25.9 RATIO (10-20); Calcium,Total 9.1 mg/dL (8.5-10.1); Chloride 107 mmol/L (98-107); Cholesterol 194 mg/dL (200); Creatinine, Serum 0.69 mg/dL (0.70-1.30); EST Glomerular Filtration Rate 120 mL/min (>60); Est Glom Filt Rate - Afr Amer 145 mL/min (>60); Globulin 2.9 g/dL (2.2-4.2); Glucose 83 mg/dL (74-106); High Density Lipoprotein 89 mg/dL; Potassium 4.3 mmol/L (3.5-5.1); Protein, Total 6.9 g/dL (6.4-8.2); Sodium Level 140 mmol/L (136-145); Triglycerides 101 mg/dL; Very Low Density Lipoprotein 20 mg/dL (5-40)
== END 2024-07-26 23:59 | disposition home or self-care (01) ==
LOC: MFPLAB 11:46
PROVIDERS: PCP Family Medicine; Visit Provider Family Medicine
DX: I10 Essential (primary) hypertension (principal)
CPT/HCPCS: 36415; 80053; 80061; 85025

== ENCOUNTER → 2025-01-07 | Outpatient (CLI) | payer MEDICARE, SELFPAY ==
[2025-01-07 23:19] LABS: PSA,Total - Annual Screen 1.74 ng/mL (0.02-4.00)
== END | disposition home or self-care (01) ==
LOC: MFPLAB 11:07
PROVIDERS: PCP Family Medicine; Visit Provider Nurse Practitioner Family
DX: Z12.5 Encounter for screening for malignant neoplasm of prostate (principal)
CPT/HCPCS: 36415; 84153; G0103

== ENCOUNTER → 2025-04-11 | Outpatient (CLI) | payer MEDICARE, SELFPAY ==
--- NOTE | 2025-04-11 08:46 | RAD_ITS ---
EXAM: XR Chest, 2 Views CLINICAL INDICATION: COUGH TECHNIQUE: Frontal and lateral views of the chest. COMPARISON: No relevant prior studies available. FINDINGS: LUNGS AND PLEURAL SPACES: Unremarkable. No consolidation. No pneumothorax. HEART: Unremarkable. No cardiomegaly. MEDIASTINUM: Unremarkable. Normal mediastinal contour. BONES/JOINTS: Unremarkable. No acute fracture. RAD/Chest PA and Lateral IMPRESSION: No acute cardiopulmonary process. Reading Location: [facility]
== END | disposition home or self-care (01) ==
LOC: RAD 08:43
PROVIDERS: PCP Family Medicine; Referring Provider Otolaryngology; Visit Provider Otolaryngology
DX: R05.9 Cough, unspecified (principal)
CPT/HCPCS: 71046

== ENCOUNTER → 2025-07-17 | Outpatient (CLI) | payer MEDICARE, SELFPAY ==
[2025-07-17 10:49] LABS: Hematocrit 44.5 % (40-54); Hemoglobin 14.8 g/dL (13.0-16.5); Mean Corp Hgb Conc 33.3 g/dL (32-36); Mean Corpuscular Volume 95.5 fL (80-94); Mean Platelet Vol. 14.4 fl (6.2-12.0); Platelet Count 218 K/mm3 (150-450); RBC Distribution Width CV 13.2 % (11.6-14.6); RBC Distribution Width SD 46.3 fl (35.1-43.9); Red Blood Count 4.66 M/mm3 (4.6-6.2); White Blood Count 6.4 K/mm3 (4.4-11.0)
[2025-07-17 11:05] LABS: AST(SGOT) 21 U/L (<=37); Alanine Aminotransfer ALT/SGPT 17 U/L (<=46); Albumin, Serum 4.3 g/dL (3.4-4.8); Alkaline Phosphatase 62 U/L (40-129); Anion Gap 9 (5-15); BUN 17 mg/dL (4-19); BUN/Creat Ratio 23.7 RATIO (10-20); Calcium,Total 9.2 mg/dL (7.6-11.0); Carbon Dioxide 26.8 mmol/L (21.0-32.0); Chloride 106 mmol/L (98-108); Cholesterol 189 mg/dL (<=200); Globulin 2.2 g/dL (2.2-4.2); Glucose 83 mg/dL (70-99); Low Density Lipoprotein Calc. 84 mg/dL; PSA,Total - Annual Screen 1.63 ng/mL (0.02-4.00); Potassium 4.9 mmol/L (3.3-5.1); Triglycerides 75 mg/dL; Very Low Density Lipoprotein 15 mg/dL (5-40); cholesterol:hdl ratio screen 2.09
== END | disposition home or self-care (01) ==
LOC: MTLAB 07:30
PROVIDERS: PCP Family Medicine; Referring Provider Family Medicine; Visit Provider Family Medicine
DX: Z13.1 Encounter for screening for diabetes mellitus (principal); Z12.5 Encounter for screening for malignant neoplasm of prostate; I10 Essential (primary) hypertension
CPT/HCPCS: 36415; 80053; 80061; 83036; 84153; 85027; G0103